=== PATIENT | male | born 1945 | race Caucasian/White ===

== ENCOUNTER 2019-01-27 10:58 | Outpatient (CLI) | payer OTHER | END 2019-01-27 11:13 | disposition home or self-care (01) | LOC: TOM 10:58 | DX: I67.82 Cerebral ischemia (principal); G31.89 Other specified degenerative diseases of nervous system; H81.8X3 Other disorders of vestibular function, bilateral; I12.9 Hypertensive chronic kidney disease with stage 1 through stage 4 chronic kidney disease, or unspecified chronic kidney disease; R63.8 Other symptoms and signs concerning food and fluid intake ==

== ENCOUNTER 2020-06-12 07:57 | Day surgery (SDC) | payer OTHER | END 2020-06-12 12:00 | disposition home or self-care (01) | LOC: AMB-ENDOS 07:57 | PROVIDERS: ATTEND Surgery | DX: D12.2 Benign neoplasm of ascending colon (principal); Z20.828 Contact with and (suspected) exposure to other viral communicable diseases ==

== ENCOUNTER 2021-08-17 12:33 | Emergency (ER) | payer OTHER ==
[~2021-08-17] VITALS: Ht 172.7 cm; Wt 66.7 kg
[2021-08-17] MEDS ORDERED: JANUVIA100 MG PO (13:20)
[2021-08-17] MEDS ORDERED: METFORMIN HCL1000 M2 PO (13:20)
[2021-08-17] MEDS ORDERED: COZAAR25 MG PO (13:21)
== END 2021-08-17 17:18 | disposition home or self-care (01) ==
LOC: ER 12:33
DX: U07.1 COVID-19 (principal); B34.9 Viral infection, unspecified; I10 Essential (primary) hypertension; E11.9 Type 2 diabetes mellitus without complications; Z79.84 Long term (current) use of oral hypoglycemic drugs

== ENCOUNTER 2022-03-29 17:54 | Emergency (ER) | payer OTHER ==
[~2022-03-29] VITALS: Ht 172.7 cm; Wt 61.2 kg
[~2022-03-29 17:54] MED LIST: COZAAR25 MG PO; JANUVIA100 MG PO; METFORMIN HCL1000 M2 PO
== END 2022-03-29 22:46 | disposition home or self-care (01) ==
LOC: ER 17:54
DX: J09.X2 Influenza due to identified novel influenza A virus with other respiratory manifestations (principal); Z20.828 Contact with and (suspected) exposure to other viral communicable diseases

== ENCOUNTER → 2022-09-04 | Emergency (ER) | payer OTHER ==
[~2022-09-04] VITALS: Ht 175.3 cm; Wt 65.8 kg
== END | disposition left against medical advice (07) ==
LOC: ER 16:38
DX: Z53.21 Procedure and treatment not carried out due to patient leaving prior to being seen by health care provider (principal)